=== PATIENT | male | born 1955 | race African-American/Black ===

== ENCOUNTER 2021-05-30 18:10 | Inpatient (IN) ==
[2021-05-31 01:05] LABS: Basophils % 0.2 % (0.0-0.8); Hemoglobin 10.4 GM/DL (14.0-18.0); Immature Granulocytes % 2.9 %; Immature Granulocytes Absolute 0.27 #; Lymphocytes # 1.8 10*3/uL (1.4-4.0); Lymphocytes % 19.3 % (21.2-54.2); Mean Corpuscular HGB Conc 31.5 GM/DL (32-36); Mean Corpuscular Volume 92.7 FL (87-102); Mean Platelet Volume 9.4 FL (9.6-12.0); Monocytes % 5.2 % (1.7-12.7); Neutrophils % 72.4 % (38.7-73.9); Platelet Count 156 T/CUMM (130-400); Red Blood Count 3.56 MC/CUMM (3.8-5.5); Red Cell Distribution Width 14.5 % (9.3-17.3); White Blood Count 9.2 T/CUMM (4-12)
[2021-05-31 01:14] LABS: INR 1.8; PT Patient Result 19.4 SECS (10.5-12.0)
[2021-05-31 01:30] LABS: Albumin 2.1 G/DL (3.4-5.0); Bilirubin,Total 1.1 MG/DL (0.20-1.00); Calcium 7.9 MG/DL (8.5-10.1); Osmolality,Calculated 302.8 MOS/KG (273-304); Potassium 4.7 MMOL/L (3.5-5.1); Total Protein 6.9 G/DL (6.4-8.2)
[2021-05-31] MEDS ORDERED: SODIUM CHLORIDE 0.9% 500 ML IV STA (01:42)
[2021-05-31 02:13] LABS: Band Neutrophils 5 % (0-10); Eosinophils 1 % (0-10); Lymphocytes 15 % (20-55); Myelocytes 1 %; Segmented Neutrophils 72 % (50-85); Total Cells Counted 100
[2021-05-31 02:14] LABS: Hypochromia 1+; Platelet Estimate Normal
[2021-05-31 02:15] LABS: Burr Cells 3+; Reactive Lymphocytes Few; Schistocytes Few
[2021-05-31 03:11] LABS: Bacteria,Urine Occasional /HPF (Few); Bilirubin,Urine Negative (Negative); Blood, Urine Small mg/dL (Negative); Glucose,Urine (UA) Negative (Negative); Granular Casts,Urine 5 /LPF (0-1); Hyaline Casts,Urine 37 /LPF (0-3); Ketones,Urine Negative (Negative); Mucus,Urine Occasional /LPF (Occasional); Nitrite,Urine Negative (Negative); Protein,Urine Negative; RBC,Urine 2 /HPF (0-4); Squamous Epithelial Cell,Urine Occasional /HPF (0-10); Urine Appearance CLEAR (Clear); Urine Color Yellow (Yellow); Urine Specific Gravity 1.014 (1.001-1.035)
[2021-05-31] MEDS ORDERED: ONDANSETRON 4 MG/2 ML VIAL IV PRN (03:12)
[2021-05-31] MEDS ORDERED: GLUCAGON 1 MG VIAL IM PRN (03:12)
[2021-05-31] MEDS: SODIUM CHLORIDE 0.9% 1,000 ML IV SCH ×2 (08:45→16:44)
[2021-05-31] MEDS: DEXTROSE 50% 25 GM/50 ML SYRINGE IV PRN ×2 (11:10→22:38)
[2021-05-31] MEDS: PANTOPRAZOLE 40 MG TABLET PO SCH (11:10)
[2021-05-31] MEDS ORDERED: DEXTROSE 10% 250 ML BAG IV SCH (11:16)
[2021-05-31] MEDS ORDERED: DEXTROSE 10% 250 ML IV ONE (11:26)
[2021-05-31] MEDS ORDERED: DEXTROSE 10% 1,000 ML IV SCH (12:30)
[2021-05-31] MEDS ORDERED: ALBUMIN 25% 12.5 GM/50 ML VIAL IV ONE (15:49)
[2021-05-31] MEDS ORDERED: ALBUMIN 25% 12.5 GM/50 ML VIAL IV PRN (15:51)
[2021-05-31 16:44] LABS: RBC,Peritoneal Fluid 21 T/CUMM
[2021-05-31] MEDS: HYDROCORTISONE 100 MG VIAL IV SCH (17:44)
[2021-06-01] MEDS: SODIUM CHLORIDE 0.9% 1,000 ML IV SCH (02:21)
[2021-06-01] MEDS: HYDROCORTISONE 100 MG VIAL IV SCH ×3 (02:23→17:45)
[2021-06-01] MEDS ORDERED: INFLUENZA VIRUS VACCINE 0.5 ML SYRINGE IM ONE (02:34)
[2021-06-01] MEDS: DEXTROSE 50% 25 GM/50 ML SYRINGE IV PRN ×2 (03:32→20:20)
[2021-06-01 05:54] LABS: Basophils % 0.2 % (0.0-0.8); Hematocrit 30.6 VOL% (42.0-52.0); Hemoglobin 9.5 GM/DL (14.0-18.0); Immature Granulocytes % 1.2 %; Lymphocytes % 12.3 % (21.2-54.2); Mean Corpuscular Volume 94.2 FL (87-102); Mean Platelet Volume 10.1 FL (9.6-12.0); Monocytes % 3.6 % (1.7-12.7); Neutrophils % 82.7 % (38.7-73.9); Red Blood Count 3.25 MC/CUMM (3.8-5.5); Red Cell Distribution Width 14.4 % (9.3-17.3); White Blood Count 8.4 T/CUMM (4-12)
[2021-06-01 05:59] LABS: Platelet Count 88 T/CUMM (130-400)
[2021-06-01 06:14] LABS: Albumin 1.8 G/DL (3.4-5.0); Bilirubin,Total 1.9 MG/DL (0.20-1.00); Calcium 7.1 MG/DL (8.5-10.1); Osmolality,Calculated 315.4 MOS/KG (273-304); Potassium 4.8 MMOL/L (3.5-5.1); Total Protein 6.2 G/DL (6.4-8.2)
[2021-06-01 06:15] LABS: Anisocytosis 1+; Burr Cells 2+; Macrocytosis 1+; Platelet Estimate Decreased
[2021-06-01] MEDS: PANTOPRAZOLE 40 MG TABLET PO SCH (10:00)
[2021-06-01] MEDS: MULTIVITAMIN INJ 10 ML in AMINO ACIDS/DEXT/LYTES 4.25-5% 2,000 ML IV SCH (16:19)
[2021-06-01] MEDS ORDERED: DEXTROSE 10% 1,000 ML IV PRN (17:00)
[2021-06-02] MEDS: HYDROCORTISONE 100 MG VIAL IV SCH ×4 (01:52→21:33)
[2021-06-02 05:39] LABS: Basophils % 1.2 % (0.0-0.8); Hematocrit 37.1 VOL% (42.0-52.0); Lymphocytes # 0.1 10*3/uL (1.4-4.0); Lymphocytes % 6.6 % (21.2-54.2); Mean Corpuscular HGB Conc 29.6 GM/DL (32-36); Mean Corpuscular Volume 98.9 FL (87-102); Monocytes % 1.2 % (1.7-12.7); NRBC # 0.02 10*3/uL; Platelet Count 59 T/CUMM (130-400); Red Blood Count 3.75 MC/CUMM (3.8-5.5); Red Cell Distribution Width 14.6 % (9.3-17.3); White Blood Count 1.7 T/CUMM (4-12)
[2021-06-02 05:40] LABS: Blood Urea Nitrogen 110 MG/DL (7-18); Calcium 6.9 MG/DL (8.5-10.1); Carbon Dioxide 19 MMOL/L (21-32); Estimated Glom Filtration Rate 43 ML/MIN; Osmolality,Calculated 312.3 MOS/KG (273-304); Potassium 5.2 MMOL/L (3.5-5.1); Sodium 141 MMOL/L (136-145); Triglycerides < 15 MG/DL (2-150)
[2021-06-02 05:45] LABS: Glucose 38 MG/DL (74-106)
[2021-06-02] MEDS: DEXTROSE 50% 25 GM/50 ML SYRINGE IV PRN ×2 (06:00→11:23)
[2021-06-02 06:20] LABS: Band Neutrophils 4 % (0-10); Lymphocytes 7 % (20-55); Platelet Estimate Decreased; Segmented Neutrophils 86 % (50-85); Total Cells Counted 100
[2021-06-02 08:56] LABS: Basophils % 0.5 % (0.0-0.8); Hematocrit 32.2 VOL% (42.0-52.0); Hemoglobin 9.9 GM/DL (14.0-18.0); Lymphocytes # 0.1 10*3/uL (1.4-4.0); Lymphocytes % 4.2 % (21.2-54.2); Mean Corpuscular HGB Conc 30.7 GM/DL (32-36); Mean Corpuscular Volume 93.9 FL (87-102); Mean Platelet Volume 11.3 FL (9.6-12.0); Monocytes % 2.1 % (1.7-12.7); NRBC # 0.03 10*3/uL; Neutrophils % 93.2 % (38.7-73.9); Red Blood Count 3.43 MC/CUMM (3.8-5.5); Red Cell Distribution Width 14.5 % (9.3-17.3); White Blood Count 1.9 T/CUMM (4-12)
[2021-06-02 08:57] LABS: Platelet Count 57 T/CUMM (130-400)
[2021-06-02] MEDS ORDERED: SODIUM CHLORIDE 0.9% 500 ML IV ONE ×2 (09:02→11:24)
[2021-06-02 09:12] LABS: Calcium 6.9 MG/DL (8.5-10.1); Osmolality,Calculated 318.1 MOS/KG (273-304); Potassium 4.7 MMOL/L (3.5-5.1)
[2021-06-02 09:19] LABS: Anisocytosis 1+; Band Neutrophils 44 % (0-10); Burr Cells 2+; Lymphocytes 6 % (20-55); Macrocytosis 1+; Metamyelocytes 8 %; Myelocytes 4 %; Nucleated Red Blood Cells 1 (0-5); Platelet Estimate Decreased; Segmented Neutrophils 36 % (50-85); Smudge Cells Few; Total Cells Counted 100
[2021-06-02] MEDS: PANTOPRAZOLE 40 MG TABLET PO SCH (11:28)
[2021-06-02] MEDS: DEXTROSE 5% 1,000 ML IV SCH ×2 (12:34→23:40)
[2021-06-02] MEDS ORDERED: fentaNYL 100 MCG/2 ML VIAL ONE (16:02)
[2021-06-02] MEDS ORDERED: VECURONIUM 10 MG VIAL IV ONE (16:02)
[2021-06-02] MEDS ORDERED: ROCURONIUM 100 MG/10 ML VIAL IV ONE (16:03)
[2021-06-02] MEDS ORDERED: MIDAZOLAM 2 MG/2 ML VIAL ONE ×2 (16:03→20:02)
[2021-06-02] MEDS ORDERED: MIDAZOLAM 100 MG in SODIUM CHLORIDE 0.9% 80 ML IV PRN (16:22)
[2021-06-02] MEDS ORDERED: NOREPINEPHRINE 4 MG/4 ML VIAL IV ONE (16:23)
[2021-06-02] MEDS ORDERED: ALBUMIN 25% 50 GM/200 ML VIAL IV ONE (16:23)
[2021-06-02] MEDS ORDERED: SODIUM CHLORIDE 0.9% 1,000 ML IV ONE (16:24)
[2021-06-02] MEDS: NOREPINEPHRINE 8 MG in SODIUM CHLORIDE 0.9% 242 ML IV PRN ×2 (16:45→23:05)
[2021-06-02] MEDS ORDERED: NOREPINEPHRINE 8 MG in SODIUM CHLORIDE 0.9% 242 ML IV PRN (16:47)
[2021-06-02] MEDS ORDERED: MULTIVITAMIN INJ 10 ML in AMINO ACIDS/DEXT/LYTES 4.25-5% 2,000 ML IV SCH (17:00)
[2021-06-02] MEDS ORDERED: PANTOPRAZOLE 40 MG VIAL IV SCH (17:00)
[2021-06-02 17:12] LABS: ABG HCO3 18.6 MMOL/L (20-26); ABG Oxygen Saturation 99.9 % (95-100); ABG PCO2 43.3 MM HG (35-48); ABG PH 7.263 (7.35-7.45); ABG TCO2 18.8 MMOL/L (23-27); Allen Test Positive; Pt O2 Delivery Device Ventilator
[2021-06-02 17:12] LABS: Bacteria,Urine Occasional /HPF (Few); Bilirubin,Urine Negative (Negative); Blood, Urine Small mg/dL (Negative); Glucose,Urine (UA) Negative (Negative); Hyaline Casts,Urine 5 /LPF (0-3); Ketones,Urine Negative (Negative); Mucus,Urine Occasional /LPF (Occasional); Nitrite,Urine Negative (Negative); Protein,Urine Negative; RBC,Urine 2 /HPF (0-4); Urine Appearance Slightly Hazy (Clear); Urine Color Yellow (Yellow); Urine Specific Gravity 1.012 (1.001-1.035); Urine Urobilinogen < 2.0 EU/DL (<2.0)
[2021-06-02] MEDS: MULTIVITAMIN INJ 10 ML in AMINO ACIDS/DEXT/LYTES 4.25-5% 2,000 ML IV SCH (17:13)
[2021-06-02] MEDS ORDERED: VANCOMYCIN INJ 500 MG in SODIUM CHLORIDE 0.9% 100 ML IV SCH (18:00)
[2021-06-02 19:28] LABS: Hemoglobin 6.8 GM/DL (14.0-18.0); Lymphocytes # 0.2 10*3/uL (1.4-4.0); Lymphocytes % 11.5 % (21.2-54.2); Mean Corpuscular HGB Conc 30.9 GM/DL (32-36); Mean Corpuscular Volume 93.2 FL (87-102); Mean Platelet Volume 10.6 FL (9.6-12.0); Monocytes % 1.4 % (1.7-12.7); Neutrophils % 87.1 % (38.7-73.9); Red Blood Count 2.36 MC/CUMM (3.8-5.5); Red Cell Distribution Width 14.5 % (9.3-17.3); White Blood Count 1.5 T/CUMM (4-12)
[2021-06-02 19:29] LABS: ABG Base Excess -7.2 MMOL/L (-2.5-2.5); ABG HCO3 18.5 MMOL/L (20-26); ABG Oxygen Saturation 97.9 % (95-100); ABG PCO2 41.5 MM HG (35-48); ABG PH 7.272 (7.35-7.45); ABG TCO2 18.3 MMOL/L (23-27)
[2021-06-02 19:31] LABS: Platelet Count 35 T/CUMM (130-400)
[2021-06-02] MEDS ORDERED: SODIUM BICARBONATE 50 MEQ/50 ML VIAL IV ONE (19:36)
[2021-06-02 19:47] LABS: Albumin 2.1 G/DL (3.4-5.0); Bilirubin,Total 1.7 MG/DL (0.20-1.00); Calcium 6.4 MG/DL (8.5-10.1); Osmolality,Calculated 313.5 MOS/KG (273-304); Potassium 4.4 MMOL/L (3.5-5.1); Total Protein 4.9 G/DL (6.4-8.2)
[2021-06-02] MEDS ORDERED: MIDAZOLAM 2 MG/2 ML VIAL IV ONE (20:00)
[2021-06-02] MEDS: PIPERACILLIN/TAZOBACTAM 3,375 MG in SODIUM CHLORIDE 0.9% 100 ML IV SCH (20:30)
[2021-06-02 20:45] LABS: Lymphocytes 24 % (20-55); Metamyelocytes 24 %; Myelocytes 20 %; Segmented Neutrophils 24 % (50-85); Total Cells Counted 100
[2021-06-02 20:49] LABS: Burr Cells 2+; Microcytosis Slight; Platelet Estimate Decreased
[2021-06-02 20:51] LABS: PT Patient Result 31.4 SECS (10.5-12.0)
[2021-06-02 21:26] LABS: Hematocrit 18.7 VOL% (42.0-52.0); Immature Granulocytes % 1.1 %; Immature Granulocytes Absolute 0.01 #; Lymphocytes # 0.1 10*3/uL (1.4-4.0); Lymphocytes % 10.6 % (21.2-54.2); Mean Corpuscular HGB Conc 31.6 GM/DL (32-36); Mean Corpuscular Volume 92.6 FL (87-102); Mean Platelet Volume 10.6 FL (9.6-12.0); Monocytes % 1.1 % (1.7-12.7); NRBC # 0.02 10*3/uL; Neutrophils % 87.2 % (38.7-73.9); Red Blood Count 2.02 MC/CUMM (3.8-5.5); Red Cell Distribution Width 14.3 % (9.3-17.3)
[2021-06-02] MEDS ORDERED: SODIUM BICARB INJ 75 MEQ in DEXTROSE 5% 1,000 ML IV SCH (21:30)
[2021-06-02 21:31] LABS: Hemoglobin 5.9 GM/DL (14.0-18.0); Platelet Count 30 T/CUMM (130-400); White Blood Count 0.9 T/CUMM (4-12)
[2021-06-02 21:45] LABS: Albumin 1.6 G/DL (3.4-5.0); Bilirubin,Total 1.8 MG/DL (0.20-1.00); Calcium 6.3 MG/DL (8.5-10.1); Osmolality,Calculated 325.7 MOS/KG (273-304); Potassium 4.2 MMOL/L (3.5-5.1); Total Protein 4.1 G/DL (6.4-8.2)
[2021-06-02] MEDS ORDERED: SODIUM CHLORIDE 0.9% 1,000 ML IV PRN (21:49)
[2021-06-02 21:56] LABS: Hypochromia 3+; Microcytosis Slight; Platelet Estimate Decreased
[2021-06-02 22:00] LABS: Band Neutrophils 6 % (0-10); Lymphocytes 12 % (20-55); Myelocytes 6 %; Nucleated Red Blood Cells 4 (0-5); Segmented Neutrophils 72 % (50-85); Total Cells Counted 100
[2021-06-03] MEDS ORDERED: SODIUM CHLORIDE 0.9% 1,000 ML IV ONE ×2 (00:16→06:49)
[2021-06-03] MEDS ORDERED: SODIUM BICARB INJ 100 MEQ in DEXTROSE 5% 1,000 ML IV SCH (01:00)
[2021-06-03] MEDS: NOREPINEPHRINE 8 MG in SODIUM CHLORIDE 0.9% 242 ML IV PRN ×3 (02:50→10:33)
[2021-06-03 03:28] VITALS: BP 107/80
[2021-06-03] MEDS: PIPERACILLIN/TAZOBACTAM 3,375 MG in SODIUM CHLORIDE 0.9% 100 ML IV SCH ×2 (04:00→11:52)
[2021-06-03 04:23] LABS: Basophils % 1.2 % (0.0-0.8); Hematocrit 32.6 VOL% (42.0-52.0); Lymphocytes # 0.1 10*3/uL (1.4-4.0); Lymphocytes % 12.3 % (21.2-54.2); Mean Corpuscular HGB Conc 32.8 GM/DL (32-36); Mean Corpuscular Volume 89.6 FL (87-102); Mean Platelet Volume 11.2 FL (9.6-12.0); Monocytes % 1.2 % (1.7-12.7); NRBC # 0.02 10*3/uL; Neutrophils % 85.3 % (38.7-73.9); Red Blood Count 3.64 MC/CUMM (3.8-5.5); Red Cell Distribution Width 14.2 % (9.3-17.3)
[2021-06-03 04:25] LABS: Hemoglobin 10.7 GM/DL (14.0-18.0); Platelet Count 22 T/CUMM (130-400); White Blood Count 0.8 T/CUMM (4-12)
[2021-06-03 04:31] LABS: INR 3.4
[2021-06-03 04:34] LABS: ABG Base Excess -5.4 MMOL/L (-2.5-2.5); ABG HCO3 18.5 MMOL/L (20-26); ABG PH 7.393 (7.35-7.45); ABG PO2 63.2 MM HG (80-95); ABG TCO2 19.4 MMOL/L (23-27)
[2021-06-03 04:46] LABS: Albumin 1.5 G/DL (3.4-5.0); Bilirubin,Total 2.3 MG/DL (0.20-1.00); Calcium 6.1 MG/DL (8.5-10.1); Total Protein 4.2 G/DL (6.4-8.2)
[2021-06-03 04:57] LABS: PT Patient Result 35.3 SECS (10.5-12.0)
[2021-06-03 05:09] LABS: Lymphocytes 18 % (20-55); Myelocytes 4 %; Nucleated Red Blood Cells 2 (0-5); Segmented Neutrophils 70 % (50-85); Total Cells Counted 102
[2021-06-03 05:10] LABS: Hypochromia 2+; Microcytosis Slight; Platelet Estimate Decreased
[2021-06-03] MEDS: HYDROCORTISONE 100 MG VIAL IV SCH ×2 (05:45→13:38)
[2021-06-03] MEDS ORDERED: SODIUM BICARBONATE 50 MEQ/50 ML VIAL IV ONE (06:49)
[2021-06-03] MEDS ORDERED: LACTATED RINGERS 1,000 ML IV ONE ×2 (09:06→10:50)
[2021-06-03] MEDS ORDERED: LORazepam 2 MG/1 ML VIAL ONE (13:44)
[2021-06-03] MEDS ORDERED: MORPHINE 2 MG/1 ML SYRINGE ONE (13:44)
[2021-06-03] MEDS: MORPHINE 2 MG/1 ML SYRINGE IV PRN ×2 (14:09→16:25)
[2021-06-03] MEDS: LORazepam 2 MG/1 ML VIAL IV PRN ×2 (14:10→16:25)
== END 2021-06-03 16:39 | disposition expired | DRG 280 ==
LOC: EDBD → EDUNIT# → N.ED 18:10 → SUATTDRO 05-31 04:00 → N.EDINP 05-31 04:00 → N.5E 05-31 20:54 → N.ICU 06-02 16:21
PROVIDERS: ADMIT Internal Medicine; ATTEND Emergency Medicine